=== PATIENT | female | born 1995 | race Caucasian/White ===

== ENCOUNTER 2019-12-07 09:55 | Day surgery (SDC) | payer OTHER ==
[2019-12-07 10:34] VITALS: BP 121/83; TEMP 97.7; BMI 28.3
[2019-12-07] MEDS ORDERED: hydrALAZINE 20 MG/ML VIAL SLOW IVP PRN (11:01)
--- NOTE | 2019-12-07 11:25 | PRG ---
DATE OF SERVICE: 12/07/2019 TIME OF SERVICE: 1100. PRESENTING COMPLAINTS: Elevated blood pressures in the office for serial blood pressures at 39 weeks and 6 days. HISTORY OF PRESENT ILLNESS: The patient is a G1, P0, 24 years old, IVF by Dr. Salter. She was noted to have an elevated blood pressure in the office for serial blood pressures. She denies headache, scotoma, or right upper quadrant pain. No prior elevated pressures. TECHNOLOGY TEACHER: A positive. Antibody negative. Pap negative. Rubella immune. VDRL nonreactive. Hepatitis B, GC, chlamydia negative. Group B strep negative. MEDICAL HISTORY: Primary infertility. SURGICAL HISTORY: Denies. ALLERGIES: DENIES. MEDICATIONS: vitamins. SOCIAL HISTORY: Denies tobacco, alcohol, or IV drug use. FAMILY HISTORY: Noncontributory. REVIEW OF SYSTEMS: Noncontributory. PHYSICAL EXAMINATION: GENERAL: White female, resting comfortably, in no acute distress. VITAL SIGNS: Blood pressure 120/86, temperature 98.2, pulse 85, respirations 18. HEENT: Within normal limits. LUNGS: Clear to auscultation bilaterally. HEART: Regular rhythm. ABDOMEN: Soft, nontender. Fundal height 38 cm. FHTs 140s. Vulva without lesions. : Vaginal exam deferred. EXTREMITIES: No clubbing, cyanosis, or edema. Serial blood pressures were carried out. Blood pressures were ranging between 90s and 120s systolic and 70s to 80s diastolic. DTRs were 1+. IMPRESSION: No evidence of preeclampsia or gestational hypertension at 39 weeks gestation. PLAN: Discharge home. ER precautions. Scheduled induction in 3 days. Job ID: [id number]
== END 2019-12-07 11:04 | disposition home health service (06) ==
LOC: L&D/OP 09:55
PROVIDERS: ATTEND Obstetrics & Gynecology
DX: O99.89 Other specified diseases and conditions complicating pregnancy, childbirth and the puerperium (principal); R03.0 Elevated blood-pressure reading, without diagnosis of hypertension; O09.03 Supervision of pregnancy with history of infertility, third trimester; Z3A.39 39 weeks gestation of pregnancy

== ENCOUNTER 2019-12-10 17:35 | Inpatient (IN) | payer OTHER ==
[2019-12-10] MEDS ORDERED: HYDROcodone/Acetaminophen 5/325 mg Tablet PO PRN ×2 (17:56)
[2019-12-10] MEDS ORDERED: NS / Oxytocin 40 units/1000ml 1,000 ML IV PRN (17:56)
[2019-12-10] MEDS ORDERED: Ondansetron PF 4 MG/2 ML Vial IVP PRN (17:56)
[2019-12-10] MEDS ORDERED: Ibuprofen 800 MG TAB PO PRN (17:56)
[2019-12-10] MEDS ORDERED: Butorphanol Tartrate 1 MG/ML VIAL SLOW IVP PRN (17:56)
[2019-12-10] MEDS ORDERED: hydrALAZINE 20 MG/ML VIAL SLOW IVP PRN (17:56)
[2019-12-10] MEDS ORDERED: Lidocaine 1% (PF) 30 ML VIAL SC PRN (17:56)
[2019-12-10] MEDS ORDERED: NS w/ Oxytocin 10 units 500 ML IV SCH ×2 (17:56)
[2019-12-10] MEDS ORDERED: Misoprostol 100 MCG TAB VAG SCH (17:56)
[2019-12-10] MEDS ORDERED: Promethazine HCl 25 MG/ML VIAL IM PRN (17:56)
[2019-12-10 18:04] VITALS: BMI 28.3
[2019-12-10] MEDS: Lactated Ringer's 1,000 ML IV SCH (18:23)
[2019-12-10 18:50] LABS: Hemoglobin 10.9 g/dL (12.0-16.0); Mean Corpuscular HGB CONC 34.7 g/dL (32.0-36.0); Mean Corpuscular Hemoglobin 28.4 pg (27.0-31.0); Mean Corpuscular Volume 81.7 fL (78.0-98.0); Platelet Count 228 thou/uL (130-400); RBC Distribution Width 12.7 % (11.5-14.5); Red Blood Cell (RBC) Count 3.85 mill/uL (4.20-5.40); White Blood Cell (WBC) Count 10.7 thou/uL (4.8-10.8)
[2019-12-10] MEDS: Misoprostol 100 MCG TAB VAG SCH (19:07)
[2019-12-10 19:31] LABS: HBSAg Index 0.17 S/CO (0-0.99); Hep B Surf Ag Non-Reactive S/CO (NonReactive); Syphilis Antibody Nonreactive (Nonreactive); Syphilis Antibody Index 0.05 S/CO (<1.00 Non-Reactive)
[2019-12-11] MEDS: Lactated Ringer's 1,000 ML IV SCH ×4 (00:02→19:45)
[2019-12-11] MEDS: Misoprostol 100 MCG TAB VAG SCH (04:30)
[2019-12-11] MEDS ORDERED: Fentanyl 4 mcg/Bup 0.1% Cadd 100 ML ONE ×2 (09:31→18:07)
[2019-12-11] MEDS: Fentanyl 4 mcg/Bupivacaine 0.1% Cassette 100 ML EPIDURAL SCH ×2 (09:53→18:11)
[2019-12-11] MEDS ORDERED: Naloxone HCl 0.4 mg/ml Vial IVP PRN ×4 (09:57→21:44)
[2019-12-11] MEDS ORDERED: Lactated Ringer's 500 ML IV PRN (09:57)
[2019-12-11] MEDS ORDERED: Acetaminophen 325 MG TAB PO PRN (09:57)
[2019-12-11] MEDS ORDERED: Ondansetron PF 4 MG/2 ML Vial IVP PRN ×2 (09:57→21:44)
[2019-12-11] MEDS ORDERED: diphenhydrAMINE 50 MG/ML VIAL IVP PRN ×2 (09:57→21:44)
[2019-12-11] MEDS ORDERED: EPHEDRINE 25 MG/5 ML SYRINGE SLOW IVP PRN (09:57)
[2019-12-11] MEDS ORDERED: Promethazine HCl 25 MG/ML VIAL IM PRN ×2 (09:57→21:44)
[2019-12-11] MEDS ORDERED: Communication Order-Pharmacy FS SCH ×2 (10:00→21:45)
--- NOTE | 2019-12-11 17:18 | PDOC.LDPN ---
Labor & Delivery Progress Note - Subjective Subjective: comfortable (pressure) - Objective Vital signs reviewed and normal: yes General: resting, breathing through contractions Dilation: 7-8 Effacement: 100% Station: 2+ FHT: category 1 [place] contractions every: 3 IUPC placed: yes - Assessment (1) Labor abnormality Code(s): O62.9 - ABNORMALITY OF FORCES OF LABOR, UNSPECIFIED Current Visit: Yes Status: Acute (2) 40 weeks gestation of Code(s): Z3A.40 - 40 WEEKS GESTATION OF Current Visit: Yes Status : Acute -: Pt unchanged 7-8cm from 1500, IUPC in placed, discussed close monitoring and CS if arrest of dilation noted in 2 hours w adequate MVUs.
[2019-12-11] MEDS ORDERED: Clindamycin/D5W 900 mg/50 ml Premix Bag ONE (20:46)
[2019-12-11] MEDS ORDERED: Gentamicin Sulfate 120 MG in Premix Bag 1 BAG IVPB SCH (21:00)
[2019-12-11] MEDS ORDERED: Ondansetron PF 4 MG/2 ML Vial ONE (21:21)
[2019-12-11] MEDS ORDERED: Ketorolac Tromethamine 30 MG/ML VIAL ONE (21:21)
[2019-12-11] MEDS ORDERED: PHENYLEPHRINE-NS 100 MCG/ML 10 ML SYRINGE ONE (21:21)
[2019-12-11] MEDS ORDERED: Lidocaine 2% 10 ML INJ ONE (21:21)
[2019-12-11] MEDS ORDERED: Oxytocin 10 UNITS/ML VIAL ONE (21:21)
[2019-12-11] MEDS ORDERED: EPHEDRINE 25 MG/5 ML SYRINGE ONE (21:21)
[2019-12-11] MEDS ORDERED: MORPHINE 5 MG/10 ML PF VIAL ONE (21:22)
[2019-12-11] MEDS ORDERED: Clindamycin/D5W 900 MG in Premix Bag 1 BAG IVPB SCH (21:30)
[2019-12-11] MEDS ORDERED: Bicitra 30 ML UDCUP PO SCH (21:30)
[2019-12-11] MEDS ORDERED: CEFAZOLIN 2 GM in Premix Bag 1 BAG IVPB SCH (21:30)
--- NOTE | 2019-12-11 21:35 | PDOC.LDPN ---
Labor & Delivery Progress Note - Subjective Subjective: comfortable - Objective Vital signs reviewed and normal: yes Abnormal vital signs: T 101.4, P105 General: resting Dilation: 8 Effacement: 90% Station: 2+ FHT: category 1 Other exam findings: caput, unchanged exam from 1700 - Assessment (1) Labor abnormality Code(s): O62.9 - ABNORMALITY OF FORCES OF LABOR, UNSPECIFIED Current Visit: Yes Status: Acute (2) 40 weeks gestation of Code(s): Z3A.40 - 40 WEEKS GESTATION OF Current Visit: Yes Status : Acute (3) Chorioamnionitis Code(s): O41.1290 - CHORIOAMNIONITIS, UNSP TRIMESTER, NOT APPLICABLE OR UNSP Current Visit: Yes Status: Acute Plan: other -: A?P: IOL w protracted labor/arrest of dilation at 8cm. Maternal temp elevation and increase pulse consistent with clinical chorioamnionitis. Abx started, CS for arrest of dilation reviewed. FHT reassuring at this time.
[2019-12-11] MEDS ORDERED: HYDROmorphone 2 MG/ML VIAL SLOW IVP PRN (21:44)
[2019-12-11] MEDS ORDERED: Ondansetron HCl/PF 4 MG/2 ML Vial IVP PRN (21:44)
[2019-12-11] MEDS ORDERED: Ketorolac Tromethamine 30 MG/ML VIAL IVP PRN (21:44)
[2019-12-11] MEDS ORDERED: L&D-Morphine 4 MG/ML VIAL SLOW IVP PRN (21:44)
[2019-12-11] MEDS ORDERED: Naloxone HCl 0.4 mg/ml Vial IV PRN (21:44)
[2019-12-11] MEDS ORDERED: Meperidine HCl/PF 25 MG/ML VIAL SLOW IVP PRN (21:44)
[2019-12-11] MEDS ORDERED: Promethazine HCl 25 MG SUPP PR PRN (21:44)
[2019-12-11] MEDS ORDERED: Ketorolac Tromethamine 30 MG/ML VIAL IVP SCH (21:45)
[2019-12-11] MEDS ORDERED: Methylergonovine 0.2 MG/ML VIAL ONE (22:08)
[2019-12-11] MEDS ORDERED: Misoprostol 200 MCG TAB ONE (22:10)
[2019-12-11] MEDS ORDERED: Meperidine HCl/PF 25 MG/ML VIAL ONE (22:42)
[2019-12-12] MEDS: Misoprostol 100 MCG TAB VAG SCH ×6 (00:42→07:28)
[2019-12-12] MEDS ORDERED: Lanolin Ointment 7 GM TUBE TOP PRN (02:13)
[2019-12-12] MEDS ORDERED: hydrALAZINE 20 MG/ML VIAL SLOW IVP PRN (02:13)
[2019-12-12] MEDS ORDERED: Bisacodyl 10 MG SUPP PR PRN (02:13)
[2019-12-12] MEDS ORDERED: Acetaminophen 325 MG TAB PO PRN (02:13)
[2019-12-12] MEDS ORDERED: Ondansetron PF 4 MG/2 ML Vial IVP PRN (02:13)
--- NOTE | 2019-12-12 02:44 | OP ---
DATE OF PROCEDURE: 12/11/2019 PREOPERATIVE DIAGNOSES: 1. G1 at 40 weeks and 4 days, undergoing induction with arrest of dilation at 8 cm. 2. Chorioamnionitis. POSTOPERATIVE DIAGNOSIS: Status post primary low transverse section and uterine atony. PROCEDURE PERFORMED: Primary low transverse section. ECHO VASCULAR TECHNOLOGIST: Temi Patterson. ANESTHESIA: Epidural, Dr. Suh. COMPLICATIONS: None. ESTIMATED BLOOD LOSS: 800 mL. QBL: Pending. OPERATIVE FINDINGS: 1. Vigorous male infant, Apgars 9 and 9, weight 7 pounds 5 ounces to [place] [facility]. 2. Low-transverse hysterotomy without extension. 3. Lower uterine segment atony, resolved with intrauterine 800 mcg of Cytotec and IM Methergine x1 dose and IV Pitocin. 4. Surgical sites hemostatic. 5. Placenta delivered intact. DESCRIPTION OF PROCEDURE: The patient was taken back to the OR with IV fluids running when she is in the OR. She was placed in dorsal supine position with a left lateral tilt with a Butler catheter and epidural catheters that were previously placed. Prior to the start of the procedure, the patient received clindamycin and gentamicin and Ancef was running. After the patient was prepped and draped, anesthesia was tested and found to be adequate. The surgeons were gowned and gloved. A Pfannenstiel skin incision was made with a scalpel. Skin incision was carried down through the subcutaneous tissue to the fascia. Once the fascia was reached, it was incised in the midline and extended superolaterally using curved Steve scissors. Mary clamps were placed in the superior border of the fascia, which was sharply and bluntly dissected off the rectus abdominis muscles in a similar fashion. The Mary clamps were placed at the inferior border of the fascia, which was sharply and was bluntly dissected down towards the level of pubic symphysis. The rectus muscles were bluntly in the midline. The peritoneum was bluntly entered and stretched laterally. An Shashi O retractor was placed in the peritoneal cavity for retraction, visualization, and protection of the wound. A bladder flap was created using Metzenbaum scissors. The bladder was dissected away from the planned hysterotomy site. A low-transverse hysterotomy was made with a scalpel. Hysterotomy was bluntly entered and stretched using the Velarde maneuver. The was delivered vertex through the incision without difficulty. After the infant was delivered, the nose and mouth were suctioned. The cord was doubly clamped and cut, and he was handed off to special care nurses in attendance. The placenta was exteriorized, massaged to firm fundus and cleared of clot and debris, it was replaced into the abdominal cavity. Ring forceps were applied to the corners of the incision into the midline inferior border. The lower uterine segment was noted to be very atonic, and Methergine was ordered as well as 800 mcg of Cytotec. The hysterotomy was closed using 4-0 Monocryl in a running locked fashion. Prior to being completely closed, 800 mcg of Cytotec were placed within the uterus. After the hysterotomy was closed, it was copiously irrigated and suctioned dry. It was inspected for any areas of bleeding and none were noted. The lower uterine segment was noted to firm at this point, and the fundus remained firm. The Shashi-O retractor was then removed from the abdominal cavity. The rectus muscle and fascia were inspected with no areas of bleeding noted. The rectus fascia was reapproximated from corner to corner in a running fashion using PDS suture. Plain gut suture was used to reapproximate the subcutaneous tissue after it was irrigated and dried. After this, the subcutaneous tissue was reapproximated. The subcuticular layer was reapproximated and dressed with Dermabond dressing. The fundus was noted to be firm at the end of the case, and there was normal lochia noted at the end of the section. The patient tolerated the procedure well, and there were no complications. Job ID: [id number]
[2019-12-12] MEDS: Ampicillin 2 GM in Sodium Chloride 0.9% 100 ML IVPB SCH ×4 (03:31→20:26)
[2019-12-12] MEDS: Clindamycin/D5W 900 MG in Premix Bag 1 BAG IVPB SCH ×3 (05:22→21:51)
[2019-12-12] MEDS: Gentamicin Sulfate 80 MG in Premix Bag 1 BAG IVPB SCH ×3 (05:23→22:45)
[2019-12-12 06:06] LABS: Hemoglobin 8.2 g/dL (12.0-16.0); Mean Corpuscular HGB CONC 34.3 g/dL (32.0-36.0); Mean Corpuscular Hemoglobin 28.4 pg (27.0-31.0); Mean Platelet Volume 9.3 fL (7.4-10.4); Platelet Count 187 thou/uL (130-400); RBC Distribution Width 12.7 % (11.5-14.5); Red Blood Cell (RBC) Count 2.88 mill/uL (4.20-5.40)
[2019-12-12] MEDS: Prenatal Vitamin 1 TAB PO SCH (08:04)
[2019-12-12] MEDS: Ferrous Sulfate 325 MG TAB PO SCH ×2 (08:04→20:25)
[2019-12-12] MEDS: Docusate Calcium (SURFAK) 240 MG CAP PO SCH ×2 (08:04→20:25)
--- NOTE | 2019-12-12 08:12 | PDOC.PP ---
Post Progress Note Post Day #: 1 Subjective: doing well, normal lochia, baby latching well, no sx of anemia noted yet PO intake tolerated: yes (clears) Flatus: yes Ambulation: yes Vital Signs (12 hours) Temp Pulse Resp BP Pulse Ox 12/12/19 07:50 98.4 F 94 20 114/74 98 12/12/19 04:00 98.7 F 87 18 116/75 12/12/19 01:30 98.6 F 78 17 119/73 99 Weight Weight 150 lb - Physical Examination General: NAD Respiratory: non-labored breathing Abdominal: no distention Fundus firm & at: below umb Skin: CS incision dry & intact (dressing CDI) Neurological: no gross focal deficits Psychiatric: A&Ox3, normal affect Result Diagrams: 12/12/19 05:49 Additional Labs: Post Labs Blood Type A POSITIVE 12/10/19 19:54 Hep Bs Antigen Non-Reactive S/CO (NonReactive) 12/10/19 17:59 (1) Labor abnormality Code(s): O62.9 - ABNORMALITY OF FORCES OF LABOR, UNSPECIFIED Status: Acute (2) 40 weeks gestation of Code(s): Z3A.40 - 40 WEEKS GESTATION OF Status: Acute (3) Chorioamnionitis Code(s): O41.1290 - CHORIOAMNIONITIS, UNSP TRIMESTER, NOT APPLICABLE OR UNSP Status: Acute - Assessment/Plan POD1 sp 1LTCS for arrest of dilation @8cm adn chorioamnionitis, intraop w uterine atony but otherwise uncomplicated. Doing well today, add iron and DC abx after 24hours afebrile reviewed.
[2019-12-12] MEDS ORDERED: Adacel (T-DAP) 0.5 ML SYRINGE IM ONE (09:00)
[2019-12-12] MEDS: HYDROcodone/Acetaminophen 5/325 mg Tablet PO PRN (12:40)
[2019-12-12] MEDS: Simethicone Chewable 80 MG TAB PO PRN ×2 (17:19→20:26)
[2019-12-12] MEDS ORDERED: Sodium Chloride 0.9% 10 ML ONE (20:22)
[2019-12-12] MEDS: Ibuprofen 800 MG TAB PO SCH (20:25)
[2019-12-13] MEDS: HYDROcodone/Acetaminophen 5/325 mg Tablet PO PRN ×3 (01:42→21:44)
[2019-12-13] MEDS: Ibuprofen 800 MG TAB PO SCH ×3 (05:49→21:46)
[2019-12-13] MEDS: Simethicone Chewable 80 MG TAB PO PRN (05:50)
[2019-12-13] MEDS: Docusate Calcium (SURFAK) 240 MG CAP PO SCH ×2 (07:50→21:46)
[2019-12-13] MEDS: Prenatal Vitamin 1 TAB PO SCH (07:50)
[2019-12-13] MEDS: Ferrous Sulfate 325 MG TAB PO SCH ×2 (07:50→22:59)
--- NOTE | 2019-12-13 07:58 | PDOC.PP ---
Post Progress Note Post Day #: 2 Subjective: doing well, no concerns, ambulating without sx of anemia, lochia getting embedded firmware developer PO intake tolerated: yes Flatus: yes Ambulation: yes Vital Signs (12 hours) Temp Pulse Resp BP 12/13/19 05:40 98.0 F 92 16 114/71 12/12/19 23:00 98.7 F 107 H 16 104/62 Weight Weight 150 lb - Physical Examination General: NAD Respiratory: non-labored breathing Abdominal: no distention Fundus firm & at: below umb Skin: CS incision dry & intact Psychiatric: A&Ox3, normal affect Result Diagrams: 12/12/19 05:49 Additional Labs: Post Labs Blood Type A POSITIVE 12/10/19 19:54 Hep Bs Antigen Non-Reactive S/CO (NonReactive) 12/10/19 17:59 (1) Labor abnormality Code(s): O62.9 - ABNORMALITY OF FORCES OF LABOR, UNSPECIFIED Status: Acute (2) 40 weeks gestation of Code(s): Z3A.40 - 40 WEEKS GESTATION OF Status: Acute (3) Chorioamnionitis Code(s): O41.1290 - CHORIOAMNIONITIS, UNSP TRIMESTER, NOT APPLICABLE OR UNSP Status: Acute - Assessment/Plan POD2 doing well, abx DC overnight. Continue post op care, plan for DC tomorrow.
[2019-12-14] MEDS: Ibuprofen 800 MG TAB PO SCH ×2 (05:24→13:52)
[2019-12-14] MEDS: HYDROcodone/Acetaminophen 5/325 mg Tablet PO PRN ×3 (05:27→13:51)
[2019-12-14 08:17] VITALS: BP 107/71; TEMP 98
[2019-12-14] MEDS: Docusate Calcium (SURFAK) 240 MG CAP PO SCH (09:19)
[2019-12-14] MEDS: Ferrous Sulfate 325 MG TAB PO SCH (09:19)
[2019-12-14] MEDS: Prenatal Vitamin 1 TAB PO SCH (09:19)
--- NOTE | 2019-12-14 10:16 | PDOC.PP ---
Post Progress Note Post Day #: 3 Subjective: doing well, no fever/chills PO intake tolerated: yes Flatus: yes Ambulation: yes Vital Signs (12 hours) Temp Pulse Resp BP Pulse Ox 12/14/19 08:16 98.0 F 88 20 107/71 99 Weight Weight 150 lb - Physical Examination General: NAD Skin: CS incision dry & intact Neurological: no gross focal deficits Psychiatric: A&Ox3, normal affect Result Diagrams: 12/12/19 05:49 Additional Labs: Post Labs Blood Type A POSITIVE 12/10/19 19:54 Hep Bs Antigen Non-Reactive S/CO (NonReactive) 12/10/19 17:59 (1) Labor abnormality Code(s): O62.9 - ABNORMALITY OF FORCES OF LABOR, UNSPECIFIED Status: Acute (2) 40 weeks gestation of Code(s): Z3A.40 - 40 WEEKS GESTATION OF Status: Acute (3) Chorioamnionitis Code(s): O41.1290 - CHORIOAMNIONITIS, UNSP TRIMESTER, NOT APPLICABLE OR UNSP Status: Acute - Assessment/Plan POD3, doing well, plan for DC today.
== END 2019-12-14 15:20 | disposition home or self-care (01) | DRG 786 ==
LOC: L&D 17:35 → 3SW 12-12 01:50
PROVIDERS: ADMIT Obstetrics & Gynecology; ATTEND Obstetrics & Gynecology
PROC: 10D00Z1 Extraction of Products of Conception, Low, Open Approach (ICD-10-PCS; principal; 2019-12-11)
PROC: 3E0P7GC Introduction of Other Therapeutic Substance into Female Reproductive, Via Natural or Artificial Opening (ICD-10-PCS; 2019-12-11)
PROC: 3E0P7VZ Introduction of Hormone into Female Reproductive, Via Natural or Artificial Opening (ICD-10-PCS; 2019-12-11)
PROC: 10H07YZ Insertion of Other Device into Products of Conception, Via Natural or Artificial Opening (ICD-10-PCS; 2019-12-11)
DX: O62.0 Primary inadequate contractions (principal); O41.1230 Chorioamnionitis, third trimester, not applicable or unspecified; O75.89 Other specified complications of labor and delivery; Z3A.40 40 weeks gestation of pregnancy; Z37.0 Single live birth
CPT/HCPCS: 36415; 51702; 85027; 86780; 86850; 86900; 86901; 87340; 99282; 99285; J0290; J0595; J0690; J1580; J1885; J2001; J2175; J2210; J2274; J2405; J2590; J3490